=== PATIENT | male | born 1960 | race Caucasian/White ===

== ENCOUNTER 2025-01-17 05:25 | Day surgery (SDC) | payer BC ==
[2025-01-17] MEDS ORDERED: Lactated Ringers 1,000 ML IV ONE (05:26)
[2025-01-17] MEDS ORDERED: Propofol 200 MG/20 ML SDV IV ONE (05:26)
[2025-01-17] MEDS ORDERED: Propofol 200 MG/20 ML SDV ONE (05:48)
[2025-01-17] MEDS: Lactated Ringers 1,000 ML IV SCH (06:14)
== END 2025-01-17 08:06 | disposition home or self-care (01) ==
LOC: DL.ENDO 05:25
PROVIDERS: ATTEND Internal Medicine Gastroenterology
DX: K31.7 Polyp of stomach and duodenum (principal); K20.90 Esophagitis, unspecified without bleeding; I10 Essential (primary) hypertension; E11.9 Type 2 diabetes mellitus without complications
CPT/HCPCS: 43239; J2003; J2704; J7120

== ENCOUNTER 2025-01-20 05:50 | Day surgery (SDC) | payer BC ==
[2025-01-20] MEDS ORDERED: Lactated Ringers 1,000 ML IV ONE (05:51)
[2025-01-20] MEDS ORDERED: Propofol 200 MG/20 ML SDV IV ONE (05:51)
[2025-01-20] MEDS: Lactated Ringers 1,000 ML IV SCH (06:27)
[2025-01-20] MEDS ORDERED: Lactated Ringers 1,000 ML IV SCH (07:30)
[2025-01-20] MEDS ORDERED: Propofol 200 MG/20 ML SDV ONE (09:09)
== END 2025-01-20 08:24 | disposition home or self-care (01) ==
LOC: DL.ENDO 05:50
PROVIDERS: ATTEND Internal Medicine Gastroenterology
DX: Z12.11 Encounter for screening for malignant neoplasm of colon (principal); K64.4 Residual hemorrhoidal skin tags; K64.8 Other hemorrhoids; I10 Essential (primary) hypertension; E11.9 Type 2 diabetes mellitus without complications; E66.9 Obesity, unspecified; K21.9 Gastro-esophageal reflux disease without esophagitis; Z68.27 Body mass index [BMI] 27.0-27.9, adult
CPT/HCPCS: 45378; J7120; J2704